=== PATIENT | female | born 1945 | race Caucasian/White ===

== ENCOUNTER → 2017-04-20 | Outpatient (CLI) | payer OTHER, MEDICARE ==
[~2017-04-20] MED LIST: ENOX30DI3 SQ; FLUT1DIS IH; FLUT9.9S NAS; IBUP-1222 PO; IRBE1TAB13 PO; LEVO50TA PO; METO25TA35 PO; POTA20PA PO; ROSU5TAB PO
== END ==
LOC: GALN 16:46
PROVIDERS: ATTEND Family Medicine
DX: Z02.9 Encounter for administrative examinations, unspecified (principal)

== ENCOUNTER → 2017-06-29 | Outpatient (CLI) | payer OTHER, MEDICARE | END | disposition home or self-care (01) | LOC: CVU 14:05 | PROVIDERS: ATTEND Internal Medicine | DX: M48.54XA Collapsed vertebra, not elsewhere classified, thoracic region, initial encounter for fracture (principal); M51.34 Other intervertebral disc degeneration, thoracic region; K44.9 Diaphragmatic hernia without obstruction or gangrene; K76.89 Other specified diseases of liver; I08.1 Rheumatic disorders of both mitral and tricuspid valves; J90 Pleural effusion, not elsewhere classified; J45.909 Unspecified asthma, uncomplicated; I10 Essential (primary) hypertension; E03.9 Hypothyroidism, unspecified; M85.80 Other specified disorders of bone density and structure, unspecified site; M81.0 Age-related osteoporosis without current pathological fracture | CPT/HCPCS: 71260; 93306 ==

== ENCOUNTER 2017-07-04 17:17 | Inpatient (IN) | payer OTHER, MEDICARE ==
[~2017-07-04] VITALS: Ht 157.5 cm; Wt 58.9 kg
[2017-07-04] MEDS ORDERED: SODIUM CHLORIDE FLUSH 10ML SYR IVF ONE (18:00)
[2017-07-04 18:31] LABS: WHITE BLOOD COUNT 5.5 x10^3/uL (3.4-10)
[2017-07-04 18:35] LABS: HEMATOCRIT 13.2 % (34.6-47.8); HEMOGLOBIN 3.4 g/dL (11.7-16.4)
[2017-07-04 18:40] LABS: ASPARTATE AMINO TRANSFERASE 362 U/L (15-37); BLOOD UREA NITROGEN 30 mg/dL (7-18)
[2017-07-04 18:46] LABS: IS PT STATUS REG ER OR PRE ER? YES
[2017-07-04 19:11] LABS: DIFF TOTAL CELLS COUNTED 100 CELL DIFF
[2017-07-04 19:36] LABS: VERIFY COUNTS? YES
[2017-07-04 19:37] LABS: HYPOCHROMIA 3+; POLYCHROMASIA 1+
[2017-07-04 19:38] LABS: OVALOCYTES 1+; SCHISTOCYTES 1+
[2017-07-04 19:42] LABS: MICROCYTOSIS 2+
[2017-07-04 20:20] VITALS: BP 113/38
[2017-07-04 20:36] VITALS: BP 123/51
[2017-07-04] MEDS ORDERED: DOCUSATE 100 MG CAPSULE PO PRN (21:00)
[2017-07-04] MEDS ORDERED: hydrALAzine 20 MG/ML, 1ML IVPush PRN (21:00)
[2017-07-04] MEDS ORDERED: ONDANSETRON ODT 4 MG PO PRN (21:00)
[2017-07-04] MEDS ORDERED: NICOTINE GUM 2 MG BC PRN (21:00)
[2017-07-04 22:03] LABS: FERRITIN 5.4 ng/mL (8-252)
[2017-07-04 22:04] VITALS: BP 106/41
[2017-07-05] VITALS (19 sets, daily range): BP systolic 95–153; BP diastolic 59–82
[2017-07-05 07:19] LABS: HEMATOCRIT 23.3 % (34.6-47.8); HEMOGLOBIN 7.6 g/dL (11.7-16.4)
[2017-07-05 07:23] LABS: ASPARTATE AMINO TRANSFERASE 459 U/L (15-37); BLOOD UREA NITROGEN 25 mg/dL (7-18)
[2017-07-05] MEDS ORDERED: LORazepam 2 MG/ML, 1ML IVPush PRN (10:00)
[2017-07-05] MEDS: PANTOPRAZOLE 40 MG IV IVPush SCH (12:17)
[2017-07-05] MEDS: FOLIC ACID 1 MG TABLET PO SCH (12:19)
[2017-07-05] MEDS: IRON SUCROSE COMPLEX 100MG/5ML IV SCH (12:19)
[2017-07-05] MEDS: THIAMINE 100MG TABLET PO SCH (12:19)
[2017-07-06] MEDS: PANTOPRAZOLE 40 MG IV IVPush SCH
[2017-07-06 00:34] VITALS: BP 138/76
[2017-07-06 06:32] LABS: HEMATOCRIT 30.9 % (34.6-47.8); HEMOGLOBIN 9.8 g/dL (11.7-16.4)
[2017-07-06 06:36] LABS: ASPARTATE AMINO TRANSFERASE 308 U/L (15-37); BLOOD UREA NITROGEN 11 mg/dL (7-18)
[2017-07-06 07:07] LABS: DIFF TOTAL CELLS COUNTED 100 CELL DIFF
[2017-07-06 07:08] LABS: VERIFY COUNTS? YES
[2017-07-06 07:09] LABS: HYPOCHROMIA 2+; MICROCYTOSIS 2+; OVALOCYTES 1+; POIKILOCYTOSIS 1+; POLYCHROMASIA 1+; SCHISTOCYTES 1+
[2017-07-06 07:49] VITALS: BP 134/80
[2017-07-06] MEDS: FOLIC ACID 1 MG TABLET PO SCH (08:53)
[2017-07-06] MEDS: IRON SUCROSE COMPLEX 100MG/5ML IV SCH (08:53)
[2017-07-06] MEDS: THIAMINE 100MG TABLET PO SCH (08:53)
[2017-07-06] MEDS ORDERED: PROMETHAZINE 12.5 MG SUPP PR PRN (10:30)
[2017-07-06] MEDS ORDERED: ONDANSETRON 2MG/ML, 2ML IVPush PRN (10:30)
[2017-07-06] MEDS ORDERED: LORazepam 2 MG/ML, 1ML IVPush PRN (10:30)
[2017-07-06] MEDS: DOCUSATE 100 MG CAPSULE PO SCH ×2 (11:56→19:59)
[2017-07-06 14:30] VITALS: BP 159/83
[2017-07-06] MEDS ORDERED: POTASSIUM CHLORIDE 20 MEQ TAB.ER.PRT PO SCH ×3 (17:00)
[2017-07-06 19:13] VITALS: BP 136/79
[2017-07-07 02:51] VITALS: BP 129/76
[2017-07-07 05:42] LABS: HEMATOCRIT 31.5 % (34.6-47.8)
[2017-07-07 06:05] LABS: ASPARTATE AMINO TRANSFERASE 123 U/L (15-37); BLOOD UREA NITROGEN 7 mg/dL (7-18)
[2017-07-07 06:39] VITALS: BP 132/74
[2017-07-07] MEDS ORDERED: POTASSIUM CHLORIDE 20 MEQ TAB.ER.PRT PO SCH (09:00)
[2017-07-07] MEDS ORDERED: MAGNESIUM SULFATE PMX 2GM/50ML 50 ML IV ONE (09:00)
[2017-07-07] MEDS: THIAMINE 100MG TABLET PO SCH (10:02)
[2017-07-07] MEDS: NEUTRA PHOS K 250 MG TABLET PO SCH ×2 (10:02→21:47)
[2017-07-07] MEDS: PANTOPRAZOLE 20MG TABLET PO SCH (10:03)
[2017-07-07] MEDS: SENNA/DOCUSATE TABLET PO SCH (10:03)
[2017-07-07] MEDS: IRON SUCROSE COMPLEX 100MG/5ML IV SCH (10:03)
[2017-07-07] MEDS: FOLIC ACID 1 MG TABLET PO SCH (10:03)
[2017-07-07 12:41] VITALS: BP 130/73
[2017-07-07] MEDS: POLYETHYLENE GLYCOL 17 GM PACKET PO SCH (15:30)
[2017-07-07] MEDS ORDERED: ENOXAPARIN 40 MG/0.4 ML SQ SCH (16:00)
[2017-07-07 18:01] LABS: OCCBLD OBC PASS
[2017-07-07 20:21] VITALS: BP 145/78
[2017-07-08 04:00] VITALS: BP 130/67
[2017-07-08 05:45] LABS: ASPARTATE AMINO TRANSFERASE 44 U/L (15-37); BLOOD UREA NITROGEN 4 mg/dL (7-18)
[2017-07-08 05:53] LABS: HEMATOCRIT 31.2 % (34.6-47.8); HEMOGLOBIN 9.8 g/dL (11.7-16.4); WHITE BLOOD COUNT 4.4 x10^3/uL (3.4-10)
[2017-07-08 06:40] LABS: DIFF TOTAL CELLS COUNTED 100 CELL DIFF
[2017-07-08 06:58] LABS: VERIFY COUNTS? YES
[2017-07-08 06:59] LABS: ANISOCYTOSIS 2+
[2017-07-08 07:03] VITALS: BP 136/77
[2017-07-08 07:06] LABS: MICROCYTOSIS 1+; OVALOCYTES 1+; POIKILOCYTOSIS 1+; POLYCHROMASIA 2+; SCHISTOCYTES 1+
[2017-07-08] MEDS: POLYETHYLENE GLYCOL 17 GM PACKET PO SCH (09:00)
[2017-07-08] MEDS ORDERED: POLYETHYLENE GLYCOL 17 GM PACKET PO SCH (09:00)
[2017-07-08] MEDS: SENNA/DOCUSATE TABLET PO SCH (09:00)
[2017-07-08] MEDS: FOLIC ACID 1 MG TABLET PO SCH (09:16)
[2017-07-08] MEDS: THIAMINE 100MG TABLET PO SCH (09:16)
[2017-07-08] MEDS: PANTOPRAZOLE 20MG TABLET PO SCH (09:16)
[2017-07-08] MEDS: IRON SUCROSE COMPLEX 100MG/5ML IV SCH (09:16)
[2017-07-08] MEDS ORDERED: POTASSIUM CHLORIDE 20 MEQ TAB.ER.PRT PO ONE ×2 (12:00→16:00)
[2017-07-08] MEDS ORDERED: PANT20TA3 PO (12:18)
[2017-07-08] MEDS ORDERED: FOLI-17 PO (12:18)
[2017-07-08] MEDS ORDERED: POTA20PA25 PO (12:18)
[2017-07-08] MEDS ORDERED: THIA100T6 PO (12:18)
[2017-07-08 12:22] VITALS: BP 148/79
[2017-07-08 13:59] LABS: OCCBLD OBC PASS
[2017-07-08 16:19] LABS: BLOOD UREA NITROGEN 4 mg/dL (7-18)
[2017-07-08] MEDS ORDERED: FLU VACC QS2017-18 (36MOS+) UP/PF 0.5 ML IM-VACC ONE (17:30)
== END 2017-07-08 18:20 | disposition home or self-care (01) | DRG 811 ==
LOC: ED 20:01 → EDIP 21:18 → 4EST 22:38
PROVIDERS: ADMIT Hospitalist; ATTEND Hospitalist
PROC: 30233N1 Transfusion of Nonautologous Red Blood Cells into Peripheral Vein, Percutaneous Approach (ICD-10-PCS; principal; 2017-07-04)
DX: D50.9 Iron deficiency anemia, unspecified (principal); N17.0 Acute kidney failure with tubular necrosis; M48.54XA Collapsed vertebra, not elsewhere classified, thoracic region, initial encounter for fracture; J90 Pleural effusion, not elsewhere classified; E87.5 Hyperkalemia; I11.0 Hypertensive heart disease with heart failure; J44.9 Chronic obstructive pulmonary disease, unspecified; E03.9 Hypothyroidism, unspecified; E78.5 Hyperlipidemia, unspecified; K44.9 Diaphragmatic hernia without obstruction or gangrene; E87.6 Hypokalemia; F10.10 Alcohol abuse, uncomplicated; F17.200 Nicotine dependence, unspecified, uncomplicated; I08.1 Rheumatic disorders of both mitral and tricuspid valves; I50.83 High output heart failure; K76.89 Other specified diseases of liver; R74.0 Nonspecific elevation of levels of transaminase and lactic acid dehydrogenase [LDH]; Z66 Do not resuscitate; Z80.51 Family history of malignant neoplasm of kidney; Z82.3 Family history of stroke; Z86.718 Personal history of other venous thrombosis and embolism; Z87.81 Personal history of (healed) traumatic fracture; Z88.6 Allergy status to analgesic agent; Z79.899 Other long term (current) drug therapy
CPT/HCPCS: 36415; 36430; 71010; 76700; 80048; 80053; 82247; 82248; 82272; 82728; 83010; 83540; 83550; 83735; 83880; 84100; 84443; 84484; 85014; 85018; 85025; 85045; 85610; 85730; 86704; 86706; 86708; 86709; 86803; 86850; 86900; 86923; 87340; 90686; 93005; 93970; J1756; J2405; Q0162; C9113; J2060; J3475; P9016

== ENCOUNTER → 2017-08-15 | Outpatient (CLI) | payer OTHER, MEDICARE ==
[~2017-08-15] MED LIST changes: +FOLI-17 PO; +PANT20TA3 PO; +POTA20PA25 PO; +THIA100T6 PO
== END | disposition home or self-care (01) ==
LOC: CFH 09:17
PROVIDERS: ATTEND Internal Medicine Gastroenterology
DX: K44.9 Diaphragmatic hernia without obstruction or gangrene (principal); K76.89 Other specified diseases of liver
CPT/HCPCS: 74181

== ENCOUNTER → 2017-08-18 | Outpatient (CLI) | payer OTHER, MEDICARE ==
[~2017-08-18] MED LIST changes: +REGADENOSON 0.4 MG/5 ML SYRINGE ONE
== END | disposition home or self-care (01) ==
LOC: CFH 08:10
PROVIDERS: ATTEND Internal Medicine Cardiovascular Disease
DX: I08.1 Rheumatic disorders of both mitral and tricuspid valves (principal)
CPT/HCPCS: 78452; 93017; 93306; A9502; J2785

== ENCOUNTER 2019-09-08 21:30 | Inpatient (IN) | payer OTHER, MEDICARE ==
[~2019-09-08] VITALS: Ht 149.9 cm; Wt 55.2 kg
[~2019-09-08 21:30] MED LIST changes: -POTA20PA PO; +POTA20PA31 PO; -REGADENOSON 0.4 MG/5 ML SYRINGE ONE; -THIA100T6 PO; +THIA100T67 PO
[2019-09-08] MEDS ORDERED: ONDANSETRON 2MG/ML, 2ML ONE (22:26)
[2019-09-08] MEDS ORDERED: MORPHINE SULFATE 4 MG/ML, 1ML ONE (22:27)
[2019-09-08] MEDS ORDERED: SODIUM CHLORIDE FLUSH 10ML SYR IVF ONE (22:30)
[2019-09-08] MEDS ORDERED: ONDANSETRON 2MG/ML, 2ML IVPush ONE (22:30)
[2019-09-08] MEDS ORDERED: MORPHINE SULFATE 4 MG/ML, 1ML IVPush PRN (22:30)
[2019-09-08 22:49] LABS: BASOPHILS # (AUTO) 0.03 x10^3/uL (0-0.1); BASOPHILS % (AUTO) 0 % (0-1); EOSINOPHILS # (AUTO) 0.12 x10^3/uL (0-0.4); EOSINOPHILS % (AUTO) 2 % (1-7); LYMPHOCYTES # (AUTO) 1.19 x10^3/uL (1-3.4); LYMPHOCYTES % (AUTO) 15 % (22-44); MD NO; MEAN CORPUSCULAR HEMOGLOBIN 31.9 pg (27.0-34.8); MEAN CORPUSCULAR HGB CONC 33.8 g/dL (32.4-35.8); MEAN CORPUSCULAR VOLUME 94.3 fL (80-100); MEAN PLATELET VOLUME 7.8 fL (7.4-10.4); MONOCYTES % (AUTO) 7 % (2-9); NEUTROPHILS # (AUTO) 5.86 x10^3/uL (1.8-6.8); NEUTROPHILS % (AUTO) 76 % (42-75); PLATELET COUNT 226 x10^3/uL (130-400); RED BLOOD COUNT 5.25 x10^6/uL (3.82-5.3); RED CELL DISTRIBUTION WIDTH 13.3 % (9.6-15.2)
[2019-09-08 22:50] LABS: ALBUMIN 4.8 g/dL (3.4-5.0); ANION GAP 11 mmol/L (5-15); CALCIUM 10.6 mg/dL (8.5-10.1); CHLORIDE 93 mmol/L (98-107); CREATININE 0.91 mg/dL (0.55-1.02)
--- NOTE | 2019-09-08 23:06 | NUR ---
PT RETURNED TO ROOM AND THEN TAKEN TO CT.
--- NOTE | 2019-09-08 23:50 | NUR ---
Pt was measuring SpO2 of 86% at room air. Pt reports Hx of COPD. Pt placed on 2 lpm O2.
[2019-09-09] MEDS ORDERED: SODIUM CHLORIDE 0.9% 1,000 ML IV ONE (00:09)
--- NOTE | 2019-09-09 00:44 | NUR ---
REPORT CALLED TO GERALD COTTON ON 4TH FLOOR.
[2019-09-09 01:20] VITALS: BP 153/82
[2019-09-09] MEDS ORDERED: POLYETHYLENE GLYCOL 17 GM PACKET PO PRN (03:00)
[2019-09-09] MEDS ORDERED: ONDANSETRON 2MG/ML, 2ML IVPush PRN (03:00)
[2019-09-09] MEDS ORDERED: BISACODYL 10 MG SUPP PR PRN (03:00)
[2019-09-09] MEDS: METOPROLOL TARTRATE 25 MG TAB PO SCH ×3 (03:00→21:17)
[2019-09-09] MEDS ORDERED: ENALAPRILAT 1.25 MG/ML, 2ML IVPush PRN (03:00)
[2019-09-09] MEDS ORDERED: morphine SULFATE 10 MG/ML, 1ML IVPush PRN (03:00)
[2019-09-09] MEDS: IRBESARTAN 300 MG TABLET PO SCH ×2 (03:18→08:52)
[2019-09-09] MEDS: POTASSIUM CHLORIDE 20 MEQ, MAGNESIUM SULFATE 2 GM, THIAMINE 200 MG, MVI ADULT 10 ML, FO... IV SCH ×2 (03:19→13:05)
[2019-09-09] MEDS: ATORVASTATIN 20 MG TABLET PO SCH ×2 (03:19→21:17)
[2019-09-09 05:32] LABS: ANION GAP 7 mmol/L (5-15); BASOPHILS # (AUTO) 0.03 x10^3/uL (0-0.1); BASOPHILS % (AUTO) 1 % (0-1); CALCIUM 8.7 mg/dL (8.5-10.1); CHLORIDE 98 mmol/L (98-107); EOSINOPHILS % (AUTO) 3 % (1-7); LYMPHOCYTES # (AUTO) 1.38 x10^3/uL (1-3.4); LYMPHOCYTES % (AUTO) 21 % (22-44); MD NO; MEAN CORPUSCULAR HEMOGLOBIN 32.3 pg (27.0-34.8); MEAN CORPUSCULAR HGB CONC 34.3 g/dL (32.4-35.8); MEAN CORPUSCULAR VOLUME 94.4 fL (80-100); MEAN PLATELET VOLUME 7.5 fL (7.4-10.4); MONOCYTES # (AUTO) 0.64 x10^3/uL (0.2-0.8); MONOCYTES % (AUTO) 10 % (2-9); NEUTROPHILS # (AUTO) 4.33 x10^3/uL (1.8-6.8); NEUTROPHILS % (AUTO) 66 % (42-75); PLATELET COUNT 170 x10^3/uL (130-400); RED BLOOD COUNT 3.99 x10^6/uL (3.82-5.3); RED CELL DISTRIBUTION WIDTH 13.3 % (9.6-15.2)
[2019-09-09 05:33] LABS: CREATININE 0.73 mg/dL (0.55-1.02)
[2019-09-09] MEDS: LEVOTHYROXINE 50 MCG TABLET PO SCH (05:50)
[2019-09-09 06:22] VITALS: BP 124/67
[2019-09-09 07:34] VITALS: BP 144/74
[2019-09-09] MEDS: PANTOPRAZOLE 20MG TABLET PO SCH (08:52)
[2019-09-09] MEDS: HYDROCHLOROTHIAZIDE 12.5 MG CAPSULE PO SCH (08:52)
[2019-09-09 13:23] VITALS: BP 105/69
[2019-09-09 20:03] VITALS: BP 126/75
[2019-09-09] MEDS: ASPIRIN 81 MG TABLET EC PO SCH (21:17)
[2019-09-10 01:54] VITALS: BP 122/75
[2019-09-10] MEDS: POTASSIUM CHLORIDE 20 MEQ, MAGNESIUM SULFATE 2 GM, THIAMINE 200 MG, MVI ADULT 10 ML, FO... IV SCH (03:44)
[2019-09-10] MEDS: LEVOTHYROXINE 50 MCG TABLET PO SCH (05:29)
[2019-09-10 07:40] VITALS: BP 118/74
[2019-09-10 08:30] LABS: BASOPHILS # (AUTO) 0.04 x10^3/uL (0-0.1); BASOPHILS % (AUTO) 1 % (0-1); EOSINOPHILS # (AUTO) 0.28 x10^3/uL (0-0.4); EOSINOPHILS % (AUTO) 5 % (1-7); LYMPHOCYTES # (AUTO) 0.83 x10^3/uL (1-3.4); LYMPHOCYTES % (AUTO) 15 % (22-44); MD NO; MEAN CORPUSCULAR HEMOGLOBIN 31.8 pg (27.0-34.8); MEAN CORPUSCULAR HGB CONC 33.4 g/dL (32.4-35.8); MEAN CORPUSCULAR VOLUME 95.2 fL (80-100); MEAN PLATELET VOLUME 7.2 fL (7.4-10.4); MONOCYTES # (AUTO) 0.43 x10^3/uL (0.2-0.8); MONOCYTES % (AUTO) 8 % (2-9); NEUTROPHILS % (AUTO) 72 % (42-75); PLATELET COUNT 158 x10^3/uL (130-400); RED BLOOD COUNT 3.86 x10^6/uL (3.82-5.3); RED CELL DISTRIBUTION WIDTH 13.3 % (9.6-15.2)
[2019-09-10 08:40] LABS: ALANINE AMINOTRANSFERASE 24 U/L (12-78); ALBUMIN 2.9 g/dL (3.4-5.0); ANION GAP 5 mmol/L (5-15); CALCIUM 7.9 mg/dL (8.5-10.1); CHLORIDE 98 mmol/L (98-107)
[2019-09-10 08:42] LABS: ALKALINE PHOSPHATASE 70 U/L (45-117); BILIRUBIN,TOTAL 1.1 mg/dL (0.2-1.0); CREATININE 0.64 mg/dL (0.55-1.02); TOTAL PROTEIN 6.4 g/dL (6.4-8.2)
[2019-09-10] MEDS: PANTOPRAZOLE 20MG TABLET PO SCH (08:44)
[2019-09-10] MEDS: IRBESARTAN 300 MG TABLET PO SCH (08:44)
[2019-09-10] MEDS: ASPIRIN 81 MG TABLET EC PO SCH (08:44)
[2019-09-10] MEDS: HYDROCHLOROTHIAZIDE 12.5 MG CAPSULE PO SCH (08:44)
[2019-09-10] MEDS: METOPROLOL TARTRATE 25 MG TAB PO SCH (08:44)
[2019-09-10 12:43] VITALS: BP 130/82
[2019-09-10] MEDS ORDERED: ASPI81TA45 PO (12:44)
[2019-09-10] MEDS ORDERED: HYDR12.517 PO (12:44)
[2019-09-10 13:24] VITALS: BP 100/65
[2019-09-16] MEDS ORDERED: ALENDRONATE 70 MG TABLET PO SCH (05:30)
== END 2019-09-10 16:10 | disposition home health service (06) | DRG 536 ==
LOC: ED 09-09 00:17 → EDIP 09-09 01:21 → 4NE 09-09 01:25 → DCLOUNGE 09-10 16:06
PROVIDERS: ADMIT Family Medicine; ATTEND Internal Medicine
DX: S32.592A Other specified fracture of left pubis, initial encounter for closed fracture (principal); E87.1 Hypo-osmolality and hyponatremia; D75.1 Secondary polycythemia; E03.9 Hypothyroidism, unspecified; E78.5 Hyperlipidemia, unspecified; E83.52 Hypercalcemia; E86.0 Dehydration; E86.1 Hypovolemia; E87.6 Hypokalemia; F10.10 Alcohol abuse, uncomplicated; Y90.9 Presence of alcohol in blood, level not specified; G89.11 Acute pain due to trauma; I11.0 Hypertensive heart disease with heart failure; I50.9 Heart failure, unspecified; Z66 Do not resuscitate; M81.0 Age-related osteoporosis without current pathological fracture; J44.9 Chronic obstructive pulmonary disease, unspecified; Z79.82 Long term (current) use of aspirin; Z80.51 Family history of malignant neoplasm of kidney; Z82.3 Family history of stroke; Z86.718 Personal history of other venous thrombosis and embolism; Z87.891 Personal history of nicotine dependence; Z96.642 Presence of left artificial hip joint; Z88.8 Allergy status to other drugs, medicaments and biological substances; W01.0XXA Fall on same level from slipping, tripping and stumbling without subsequent striking against object, initial encounter; Y93.89 Activity, other specified; Y92.89 Other specified places as the place of occurrence of the external cause; Y99.8 Other external cause status
CPT/HCPCS: 36415; 73502; J7042; 72192; 80048; 80053; 82040; 82330; 84443; 85025; G0378; J2405; J3411; J3475; J3480; J2270